=== PATIENT | female | born 1955 | race Caucasian/White ===

== ENCOUNTER 2016-06-29 09:43 | Day surgery (SDC) | payer OTHER ==
[~2016-06-29 09:43] MED LIST: FENTANYL 250 MCG/5 ML AMP IV PRN; LACTATED RINGERS 1,000 ML IV SCH; MIDAZOLAM HCL 5 MG/5 ML VIAL IV PRN
[2016-06-29] MEDS ORDERED: IV START KIT ONE (09:45)
[2016-06-29] MEDS ORDERED: LACTATED RINGERS 1,000 ML ONE (09:45)
[2016-06-29] MEDS ORDERED: FENTANYL 5 ML ONE (10:25)
[2016-06-29] MEDS ORDERED: MIDAZOLAM HCL 5 MG/5 ML VIAL ONE (10:25)
== END 2016-06-29 11:48 | disposition home or self-care (01) ==
LOC: SDC 09:43
PROVIDERS: ATTEND Internal Medicine Gastroenterology
PROC: 0DJD8ZZ Inspection of Lower Intestinal Tract, Via Natural or Artificial Opening Endoscopic (ICD-10-PCS; principal; 2016-06-29)
DX: Z12.11 Encounter for screening for malignant neoplasm of colon (principal); Z83.71 Family history of colonic polyps
CPT/HCPCS: 45378; J3010; J2250; J7120